=== PATIENT | male | born 1975 | race Two or more races ===

== ENCOUNTER 2020-10-23 17:40 | Emergency (ER) | payer OTHER ==
[~2020-10-23] VITALS: Ht 172.7 cm; Wt 86.2 kg
[2020-10-23] MEDS ORDERED: NORFLEX100MG PO (19:41)
[2020-10-23] MEDS ORDERED: KETO10TA2 PO (19:41)
[2020-10-23] MEDS ORDERED: AMRIX30 MG PO (23:05)
== END 2020-10-23 23:15 | disposition home or self-care (01) ==
LOC: ER 17:40
DX: M54.89 Other dorsalgia (principal)

== ENCOUNTER 2021-04-11 15:14 | Outpatient (CLI) | payer OTHER ==
[~2021-04-11 15:14] MED LIST: AMRIX30 MG PO; KETO10TA2 PO; NORFLEX100MG PO
== END 2021-04-11 15:40 | disposition home or self-care (01) ==
LOC: MRI 15:14
PROVIDERS: ATTEND Physical Medicine & Rehabilitation
DX: M50.30 Other cervical disc degeneration, unspecified cervical region (principal); M79.601 Pain in right arm
CPT/HCPCS: 72141

== ENCOUNTER 2021-10-04 08:08 | Outpatient (CLI) | payer OTHER | END 2021-10-04 08:31 | disposition home or self-care (01) | LOC: TOM 08:08 | DX: R10.31 Right lower quadrant pain (principal) ==

== ENCOUNTER 2023-10-24 08:05 | Outpatient (CLI) | payer OTHER | END 2023-10-24 08:13 | disposition home or self-care (01) | LOC: SONOGRAMA 08:05 | PROVIDERS: ATTEND Specialist | DX: K80.20 Calculus of gallbladder without cholecystitis without obstruction (principal) ==

== ENCOUNTER 2024-12-26 14:04 | Outpatient (CLI) | payer OTHER | END 2024-12-26 14:42 | disposition home or self-care (01) | LOC: SONOGRAMA 14:04 | PROVIDERS: ATTEND Specialist | DX: N20.0 Calculus of kidney (principal) ==